=== PATIENT | female | born 1990 | race Caucasian/White ===

== ENCOUNTER 2019-05-16 16:54 | Inpatient (IN) | payer MEDICAID ==
[~2019-05-16] VITALS: Ht 152.4 cm; Wt 74.4 kg
[~2019-05-16 16:54] MED LIST: FERR-142 PO; PREN-385 PO
[2019-05-16] MEDS ORDERED: OXYTOCIN 20 UNITS in LACTATED RINGERS 1,000 ML IV SCH (17:30)
[2019-05-16 18:32] LABS: BASOPHILS % (AUTO) 0.4 % (0.0-2.0); EOSINOPHILS # (AUTO) 0.1 K/uL (0-0.4); EOSINOPHILS % (AUTO) 1.3 % (0.0-4.0); HEMATOCRIT 32.3 % (36-48); HEMOGLOBIN 11.1 g/dL (12.0-16.0); LYMPHOCYTES # (AUTO) 1.5 K/uL (2.5-16.5); LYMPHOCYTES % (AUTO) 24.1 % (20.5-51.1); MEAN CORPUSCULAR HEMOGLOBIN 29 pg (27-31); MEAN CORPUSCULAR HGB CONC 34 g/dL (33-37); MEAN CORPUSCULAR VOLUME 84.7 fL (80-94); MONOCYTES # (AUTO) 0.4 K/uL (0.8-1.0); MONOCYTES % (AUTO) 6.3 % (1.7-9.3); NEUTROPHILS # (AUTO) 4.3 K/uL (1.8-7.7); NEUTROPHILS % (AUTO) 67.9 % (42.2-75.2); PLATELET COUNT (AUTO) 182 K/uL (140-450); RED BLOOD CELL COUNT(AUTO) 3.81 MIL/uL (4.20-5.40); RED CELL DISTRIBUTION WIDTH 16.5 % (11.6-13.7); WHITE BLOOD COUNT (AUTO) 6.4 K/uL (4.8-10.8)
[2019-05-16 18:42] LABS: APPEARANCE,URINE CLEAR (CLEAR); BILIRUBIN,URINE NEGATIVE (NEGATIVE); BLOOD, URINE NEGATIVE (NEGATIVE); COLOR,URINE YELLOW (YELLOW); LEUKOCYTE ESTERASE ,URINE 3+ (NEGATIVE); NITRITE, URINE NEGATIVE (NEGATIVE); PH,URINE 7.5 (5.0-9.0); UGLUCOSE NEGATIVE (NEGATIVE)
[2019-05-16 18:48] LABS: ANION GAP 13.7 (8-16); CARBON DIOXIDE 23.8 mmol/L (21-32); CREATININE 0.7 mg/dL (0.6-1.3); POTASSIUM 3.5 mmol/L (3.5-5.1)
[2019-05-16 18:53] LABS: PROTHROMBIN TIME 8.9 secs (10.8-13.4)
[2019-05-16 18:55] LABS: ALBUMIN 2.3 g/dL (3.4-5.0); TOTAL BILIRUBIN 0.3 mg/dL (0.0-1.0); URIC ACID 4.2 mg/dL (2.6-7.2)
[2019-05-16 19:38] LABS: RBC,URINE 0-5 /HPF (0-5)
[2019-05-16 19:39] LABS: WBC,URINE 16-25 (MOD) /HPF (0-5)
[2019-05-16] MEDS: LACTATED RINGERS 1,000 ML IV SCH (19:57)
[2019-05-16] MEDS ORDERED: AMPICILLIN 2,000 MG in NACL 0.9% 100 ML IV ONE (20:05)
[2019-05-16] MEDS ORDERED: AMPICILLIN 2,000 MG VIAL ONE (20:12)
[2019-05-16 20:43] LABS: URINE TOTAL PROTEIN 34.2 mg/dL (0-12)
[2019-05-16 21:09] VITALS: BP 164/82
[2019-05-16] MEDS ORDERED: MISOPROSTOL 25 MCG TAB ONE (22:59)
[2019-05-16] MEDS ORDERED: AMPICILLIN 1,000 MG VIAL ONE (23:46)
[2019-05-17] MEDS ORDERED: MISOPROSTOL 25 MCG TAB VG SCH
[2019-05-17] MEDS ORDERED: fentaNYL 0.05 MG/ML VIAL ONE (00:41)
[2019-05-17] MEDS: fentaNYL 0.05 MG/ML VIAL IVP PRN ×2 (00:50→09:10)
[2019-05-17] MEDS ORDERED: AMPICILLIN 1,000 MG VIAL ONE ×2 (03:30→07:48)
[2019-05-17] MEDS: AMPICILLIN 1,000 MG in NACL 0.9% 50 ML IV SCH ×4 (04:02→07:59)
[2019-05-17] MEDS ORDERED: FAMOTIDINE 20 MG/2 ML VIAL IVP ONE (05:20)
[2019-05-17] MEDS ORDERED: ONDANSETRON 8 MG in NACL 0.9% 50 ML IVP ONE (05:20)
[2019-05-17] MEDS ORDERED: ONDANSETRON 8 MG in NACL 0.9% 50 ML IV ONE (05:20)
[2019-05-17] MEDS ORDERED: ONDANSETRON 4 MG/2 ML VIAL ONE (05:27)
[2019-05-17] MEDS ORDERED: OXYTOCIN 20 UNITS/LR PREMIX 1,000 ML IV ONE (05:29)
[2019-05-17] MEDS: LACTATED RINGERS 1,000 ML IV SCH (05:45)
[2019-05-17] MEDS ORDERED: FAMOTIDINE 20 MG TAB ONE (05:50)
[2019-05-17] MEDS ORDERED: FAMOTIDINE 20 MG TAB PO ONE (05:55)
[2019-05-17] MEDS ORDERED: hydrALAZINE 20 MG/ML VIAL IVP ONE (06:50)
[2019-05-17] MEDS ORDERED: hydrALAZINE 20 MG/ML VIAL ONE ×2 (06:53→11:12)
--- NOTE | 2019-05-17 08:44 | NUR ---
PATIENT HAS BEEN SCREENED AND CATEGORIZED LOW NUTRITION RISK. PATIENT WILL BE SEEN WITHIN 7 DAYS OF ADMISSION. 05/23/[address]
[2019-05-17] MEDS ORDERED: LIDOCAINE MPF 1% 10 MG/ML VIAL INJ SCH (08:45)
[2019-05-17] MEDS ORDERED: LIDOCAINE 1% 500 MG/50 ML VIAL ONE (08:45)
[2019-05-17] MEDS ORDERED: TERBUTALINE 1 MG/ML VIAL SUBQ ONE (10:07)
[2019-05-17] MEDS ORDERED: OXYTOCIN 10 UNITS/ML VIAL IM PRN (10:55)
[2019-05-17] MEDS ORDERED: MEASLES, MUMPS, AND RUBELLA 1 VIAL SQVAC PRN (10:55)
[2019-05-17] MEDS ORDERED: IBUPROFEN 800 MG TAB PO PRN (10:55)
[2019-05-17] MEDS ORDERED: BISACODYL 5 MG TABEC PO PRN (10:55)
[2019-05-17] MEDS ORDERED: BENZOCAINE/MENTHOL 20%-0.5% 60 GM CAN TP PRN (10:55)
[2019-05-17] MEDS ORDERED: IBUPROFEN 600 MG TAB PO PRN (10:55)
[2019-05-17 11:18] VITALS: BP 162/76
[2019-05-17] MEDS ORDERED: hydrALAZINE 20 MG/ML VIAL IVP SCH (11:30)
[2019-05-17] MEDS ORDERED: MAG SULF 2000 MG/WATER PREMIX 100 ML IV SCH (12:00)
[2019-05-17] MEDS: MAG SULF 20 GM/H2O PREMIX DRIP 500 ML IV SCH (15:14)
[2019-05-18] MEDS: MAG SULF 20 GM/H2O PREMIX DRIP 500 ML IV SCH ×2 (01:36→11:56)
[2019-05-18 08:39] LABS: HEMATOCRIT 30.5 % (36-48); HEMOGLOBIN 10.4 g/dL (12.0-16.0)
[2019-05-18] MEDS ORDERED: MAG SULF 20 GM/H2O PREMIX DRIP 500 ML IV ONE (11:53)
[2019-05-18] MEDS ORDERED: INFLUENZA VACCINE QUAD 0.5 ML SYR IMVAC PRN (21:40)
== END 2019-05-19 12:55 | disposition home or self-care (01) | DRG 560 ==
LOC: MLD 16:54 → MFCC 05-18 15:10
PROVIDERS: ADMIT Obstetrics & Gynecology; ATTEND Obstetrics & Gynecology
PROC: 10E0XZZ Delivery of Products of Conception, External Approach (ICD-10-PCS; principal; 2019-05-17)
PROC: 3E0P7VZ Introduction of Hormone into Female Reproductive, Via Natural or Artificial Opening (ICD-10-PCS; 2019-05-17)
PROC: 3E0R3BZ Introduction of Anesthetic Agent into Spinal Canal, Percutaneous Approach (ICD-10-PCS; 2019-05-17)
PROC: 00HU33Z Insertion of Infusion Device into Spinal Canal, Percutaneous Approach (ICD-10-PCS; 2019-05-17)
PROC: 3E0234Z Introduction of Serum, Toxoid and Vaccine into Muscle, Percutaneous Approach (ICD-10-PCS; 2019-05-17)
PROC: 3E02340 Introduction of Influenza Vaccine into Muscle, Percutaneous Approach (ICD-10-PCS; 2019-05-18)
DX: O14.94 Unspecified pre-eclampsia, complicating childbirth (principal); O69.1XX0 Labor and delivery complicated by cord around neck, with compression, not applicable or unspecified; Z37.0 Single live birth; Z3A.37 37 weeks gestation of pregnancy; Z23 Encounter for immunization
CPT/HCPCS: 36415; 51702; 59200; 59409; 76805; 80053; 81001; 82570; 83735; 84550; 85018; 85025; 85384; 85610; 85730; 86592; 86886; 86900; 86901; 87086; 87653-90; 90715; J0290; J0360; J2001; J2405; J2590; J3010; J3105; J3475; J7120; Q0092